=== PATIENT | female | born 1985 | race Caucasian/White ===

== ENCOUNTER 2018-08-12 14:42 | Emergency (ER) | payer MEDICAID ==
[~2018-08-12] VITALS: Ht 182.9 cm; Wt 100.0 kg
[2018-08-12 16:15] VITALS: BP 127/69
== END 2018-08-12 16:26 | disposition home or self-care (01) ==
LOC: EMS 14:44
DX: F10.20 Alcohol dependence, uncomplicated (principal); M79.641 Pain in right hand; Z88.6 Allergy status to analgesic agent

== ENCOUNTER 2018-08-13 09:42 | Emergency (ER) | payer MEDICAID ==
[~2018-08-13] VITALS: Ht 175.3 cm; Wt 72.7 kg
[2018-08-13 12:13] VITALS: BP 123/85
== END 2018-08-13 12:15 | disposition home or self-care (01) ==
LOC: EMS 09:44
DX: F10.21 Alcohol dependence, in remission (principal); Z88.8 Allergy status to other drugs, medicaments and biological substances; Y90.0 Blood alcohol level of less than 20 mg/100 ml